=== PATIENT | male | born 1955 | race Caucasian/White ===

== ENCOUNTER 2023-12-22 08:44 | Outpatient (CLI) | payer OTHER, SELFPAY | END 2023-12-22 08:45 | disposition home or self-care (01) | LOC: NFLDREF 12-27 14:23 | PROVIDERS: PCP Emergency Medicine; Referring Provider Emergency Medicine; Visit Provider Emergency Medicine | DX: M81.0 Age-related osteoporosis without current pathological fracture (principal); R55 Syncope and collapse; E78.5 Hyperlipidemia, unspecified; Z12.5 Encounter for screening for malignant neoplasm of prostate | CPT/HCPCS: 80048; 80061; 82306; 84100; G0103 ==

== ENCOUNTER 2024-01-10 14:49 | Outpatient (CLI) | payer OTHER, SELFPAY ==
--- NOTE | 2024-01-10 16:15 | W.PM.STED ---
Stress Test Note Date Date Seen: 01/10/24 Date of test: 01/10/24 Providers Primary care provider: Ashley Wilkerson Stress test physician: Royer Cifuentes Stress Test Note Stress test ordered: Stress Echo Indication for test: Shortness of breath Results discussion: Patient is a very nice 68-year-old gentleman who presents for the above test after discussion the risks benefits and side effects he would like to proceed, cardiac stress test medical history form is reviewed entirely, pretest EKG shows normal sinus rhythm, there is no acute ST wave changes, ventricular rate is 61. Following standard Faisal protocol patient is exercised for a total time of12 min , maximum heart rate was 147 , 114 percentage of maximum, during this test there is no specific ST wave changes suggestive of ischemia, there is no dysrhythmias. He did not develop any subjective symptoms such as shortness of breath, or chest pain or anginal equivalent symptoms. Final review of the tracing did not show any ST wave changes. There were occasional PVCs noted. Conditioning was felt to be excellent. Impression: Negative electrographic portion of stress echo for signs of ischemia, there was evidence of occasional PVCs., patient reported to be subjectively negative Follow up suggested: Await echo images, Cardiology will review this, clinical correlation will be needed, patient recovered normally left this testing facility in good condition.
[2024-01-10 16:24] VITALS: BP 162/72; PULSE 84; RESP 18
== END 2024-01-10 16:25 | disposition home or self-care (01) ==
LOC: STRESS 14:51
PROVIDERS: PCP Emergency Medicine; Visit Provider Emergency Medicine
DX: R06.02 Shortness of breath (principal); R93.1 Abnormal findings on diagnostic imaging of heart and coronary circulation
CPT/HCPCS: 93016; 93325; 93351

== ENCOUNTER 2024-06-06 08:40 | Outpatient (CLI) | payer OTHER, SELFPAY | END 2024-06-06 08:41 | disposition home or self-care (01) | PROVIDERS: PCP Emergency Medicine; Visit Provider Emergency Medicine | DX: R10.32 Left lower quadrant pain (principal); K57.30 Diverticulosis of large intestine without perforation or abscess without bleeding; D64.9 Anemia, unspecified; R39.9 Unspecified symptoms and signs involving the genitourinary system; M81.0 Age-related osteoporosis without current pathological fracture | CPT/HCPCS: 74177; 82565; 86140; 87086; Q9967 ==

== ENCOUNTER 2024-06-26 16:05 | Outpatient (CLI) | payer OTHER, SELFPAY | END 2024-06-26 16:06 | disposition home or self-care (01) | LOC: NFLDREF 06-27 03:16 | PROVIDERS: PCP Emergency Medicine; Referring Provider Emergency Medicine; Visit Provider Emergency Medicine | DX: D64.9 Anemia, unspecified (principal) | CPT/HCPCS: 82728; 83540; 83550 ==

== ENCOUNTER 2024-07-11 14:12 | Outpatient (CLI) | payer OTHER, SELFPAY ==
--- NOTE | 2024-07-11 14:30 | CRLHL7_ITS ---
For Patients: As a result of the Century Cures Act, medical imaging exams and procedure reports are released immediately into your electronic medical record. You may view this report before your referring provider. If you have questions, please contact your health care provider. XR DXA BONE MINERAL DENSITY (BMD) Current height (in): 70.5. Weight (lb): 162.0. Menopause age: N/A. Ethnicity: White. Reason for exam: Low bone density T-score 05/15/2021. 1. Have you had a previous hip or vertebral fracture? No. 2. Have you had any fractures during your adult life which did not result from significant trauma (e.g., auto accident)? No. 3. Did either of your parents have a hip fracture? No. 4. Do you smoke? No. 5. Have you ever taken Glucocorticoids? No. 6. Do you have rheumatoid arthritis? No. 7. Do you have secondary osteoporosis? No. 8. Do you drink 3 or more alcoholic drinks per day? No. 9. Are you being treated for osteoporosis? Yes. 10. Have you ever taken any of the following medications: Actonel, Evista, Fosamax, Miacalcin, Reclast, Boniva, Forteo, HRT (i.e. estrogen/hormone therapy), Protelos, Prolia, Vitamin D, Calcium, other ??? please specify. ANSWER: Yes; Fosamax, Vitamin D, Calcium. 11. Do you have any of the following medical conditions: Anorexia or bulimia, asthma or emphysema, end stage renal disease, hyperparathyroidism, any seizure disorders, cancer, inflammatory bowel diseases, hysterectomy, other ??? please specify. ANSWER: No. 12. What was your maximum height (inches)? 70. 13. Do you perform weight bearing exercise regularly? No. 14. Do you regularly consume dairy products? Yes. 15. Do you drink caffeinated beverages? Yes. TECHNIQUE: Bone mineral density study was performed using the [facility]. FINDINGS: The results of the study expressed as bone mineral density (BMD) are as follows: Lumbar spine L1 to L4: BMD: 0.846 g/cm2. T-score: -2.2. Z-score: -1.3 Neck Left: BMD: 0.661 g/cm2. T-score: -2.0. Z-score: -0.8 Right: BMD: 0.689 g/cm2. T-score: -1.8. Z-score: -0.6 Total Left: BMD: 0.914 g/cm2. T-score: -0.8. Z-score: -0.1 Right: BMD: 0.935 g/cm2. T-score: -0.6. Z-score: 0.0 IMPRESSION: Osteopenia. Sixto Londono M.D. Diagnostic Radiologist [email or web address] Transcribed: 2:40 pm DW/Dictated by: Sixto Londono MD @ 07/12/2024 9:10:00 AM (Electronically Signed)
== END 2024-07-11 14:13 | disposition home or self-care (01) ==
LOC: RAD 14:12
PROVIDERS: PCP Emergency Medicine; Visit Provider Emergency Medicine
DX: Z13.820 Encounter for screening for osteoporosis (principal); M85.89 Other specified disorders of bone density and structure, multiple sites; M81.8 Other osteoporosis without current pathological fracture
CPT/HCPCS: 77080

== ENCOUNTER 2024-07-23 09:27 | Outpatient (CLI) | payer OTHER, SELFPAY ==
--- NOTE | 2024-07-23 10:45 | P.ANES_ITS ---
Anesthesia Charges Start Date/Time Anesthesia Start Date: 07/23/24 Anesthesia Start Time: 10:15 Stop Date/Time Anesthesia Stop Date: 07/23/24 Anesthesia Stop Time: 10:45 Coding CPT Codes CPT Codes: ISABELLA LWR INTST SCR COLSC - [id number] ([id number]) P2 - PATIENT W/MILD SYST DISEASE, QX - REMELT PAN TANK OPERATOR SVC W/ MD MED DIRECTION, QK - CLINICAL BIOSTATISTICIAN 2-4 CNCRNT ANES PROC
--- NOTE | 2024-07-23 10:45 | W.ANESCHARGE ---
Anesthesia Charges Start Date/Time Anesthesia Start Date: 07/23/24 Anesthesia Start Time: 10:15 Stop Date/Time Anesthesia Stop Date: 07/23/24 Anesthesia Stop Time: 10:45 Coding CPT Codes CPT Codes: ISABELLA LWR INTST SCR COLSC - [id number] ([id number]) P2 - PATIENT W/MILD SYST DISEASE, QX - GAS MANAGER SVC W/ MD MED DIRECTION, QK - ROAD REPAIRER 2-4 CNCRNT ANES PROC
--- NOTE | 2024-07-23 10:49 | P.ANES_ITS ---
Anesthesia Charges Start Date/Time Anesthesia Start Date: 07/23/24 Anesthesia Start Time: 10:15 Stop Date/Time Anesthesia Stop Date: 07/23/24 Anesthesia Stop Time: 10:45 Coding CPT Codes CPT Codes: ISABELLA LWR INTST SCR COLSC - [id number] ([id number]) QK - JOURNEYMAN POWERHOUSE OPERATOR 2-4 CNCRNT ISABELLA PROC, QX - PLANT WIRE CHIEF SVC W/ MD MED DIRECTION, P2 - PATIENT W/MILD SYST DISEASE
--- NOTE | 2024-07-23 10:49 | W.ANESCHARGE ---
Anesthesia Charges Start Date/Time Anesthesia Start Date: 07/23/24 Anesthesia Start Time: 10:15 Stop Date/Time Anesthesia Stop Date: 07/23/24 Anesthesia Stop Time: 10:45 Coding CPT Codes CPT Codes: ISABELLA LWR INTST SCR COLSC - [id number] ([id number]) QK - ZOO CARETAKER 2-4 CNCRNT ISABELLA PROC, QX - SAP BASIS ADMINISTRATOR SVC W/ MD MED DIRECTION, P2 - PATIENT W/MILD SYST DISEASE
== END 2024-07-23 09:28 | disposition home or self-care (01) ==
LOC: OP CLINIC 09:28
PROVIDERS: PCP Emergency Medicine; Visit Provider Internal Medicine
DX: Z12.11 Encounter for screening for malignant neoplasm of colon (principal); K57.30 Diverticulosis of large intestine without perforation or abscess without bleeding; Z86.0100 Personal history of colon polyps, unspecified
CPT/HCPCS: 00812; 45378; J2704